=== PATIENT | male | born 1985 | race African-American/Black ===

== ENCOUNTER 2024-06-04 01:13 | Emergency (ER) | payer MEDICARE ==
[~2024-06-04] VITALS: Ht 182.9 cm; Wt 85.0 kg
[2024-06-04 01:24] VITALS: TEMP 98.4; O2SAT 100
[2024-06-04] MEDS ORDERED: KETOROLAC 30MG/ML VIAL IM ONE (02:15)
[2024-06-04] MEDS ORDERED: AMOX1TAB16 MT (02:34)
[2024-06-04 02:54] VITALS: BP 181/109; PULSE 97; RESP 18
[2024-06-04] MEDS: KETOROLAC 30MG/ML VIAL IM NR (02:54)
== END 2024-06-04 03:00 | disposition home or self-care (01) ==
LOC: ER 01:13
DX: K02.9 Dental caries, unspecified (principal); K04.7 Periapical abscess without sinus
CPT/HCPCS: 99283; 96372; J1885